=== PATIENT | female | born 1955 | race Two or more races ===

== ENCOUNTER → 2017-10-31 | Outpatient (REF) | payer BC ==
[2017-11-03 00:06] LABS: H. PYLORI BREATH TEST Negative (Negative)
== END ==
LOC: M LAB REF 15:07
DX: A04.8 Other specified bacterial intestinal infections (principal)
CPT/HCPCS: 83013

== ENCOUNTER → 2019-10-07 | Outpatient (RCR) | payer MEDICARE | END | disposition home or self-care (01) | LOC: M ST 10-02 13:14 | PROVIDERS: ATTEND Psychiatry & Neurology Neurology | DX: I69.320 Aphasia following cerebral infarction (principal) ==

== ENCOUNTER → 2019-11-06 | Outpatient (RCR) | payer MEDICARE | END | disposition home or self-care (01) | LOC: M ST 10-08 10:50 | PROVIDERS: ATTEND Psychiatry & Neurology Neurology | DX: I69.320 Aphasia following cerebral infarction (principal) ==

== ENCOUNTER 2019-12-06 10:30 | Outpatient (RCR) | payer MEDICARE | END 2019-12-07 | LOC: M ST 10:30 | PROVIDERS: ATTEND Psychiatry & Neurology Neurology | DX: Z51.89 Encounter for other specified aftercare (principal); I63.512 Cerebral infarction due to unspecified occlusion or stenosis of left middle cerebral artery; I69.320 Aphasia following cerebral infarction ==

== ENCOUNTER 2019-12-30 09:41 | Outpatient (RCR) | payer MEDICARE | END 2020-01-06 | LOC: M ST 09:41 | PROVIDERS: ATTEND Psychiatry & Neurology Neurology | DX: I69.320 Aphasia following cerebral infarction (principal) ==

== ENCOUNTER 2020-01-21 09:58 | Outpatient (RCR) | payer MEDICARE | END 2020-02-06 | LOC: M ST 09:58 | PROVIDERS: ATTEND Psychiatry & Neurology Neurology | DX: I69.320 Aphasia following cerebral infarction (principal) ==